=== PATIENT | female | born 1990 | race Caucasian/White ===

== ENCOUNTER 2020-02-13 09:20 | Observation (INO) | payer OTHER ==
[~2020-02-13] VITALS: Ht 167.6 cm; Wt 59.4 kg
[2020-02-13 10:27] LABS: HEMATOCRIT 30.9 % (37.0-47.0); HEMOGLOBIN 9.4 g/dl (12.0-16.0); IMMATURE GRANULOCYTES 0.1 % (0.0-5.0); MEAN CELL VOLUME 88.5 fL CALC (80.0-100.0); MEAN CORPUSCULAR HGB 26.9 pG CALC (26.0-32.0); MEAN CORPUSCULAR HGB CONC 30.4 g/dL CAL (32.0-36.0); NEUT# 5.53 thou/uL (2.00-7.15); RED BLOOD COUNT 3.49 mill/uL (4.20-5.60); RED CELL DISTRI WIDTH 16.9 % (11.5-15.5)
[2020-02-13 10:45] LABS: ALBUMIN 4.1 g/dL (3.2-5.0); ALKALINE PHOSPHATASE 56 u/l (38-126); ANION GAP 10 (6-22 (CALC)); BILIRUBIN, TOTAL 0.2 mg/dL (0.0-1.4); BUN 14 mg/dL (7-17); BUN/CREATININE RATIO 16 (12-20 (CALC)); CARBON DIOXIDE 30 mmol/l (22-30); CHLORIDE 104 mmol/l (95-108); CREATININE 0.8 mg/dL (0.5-1.0); GFR > 60 ML/MIN (>=60 (CALC)); GFR FOR AFR.AMER. > 60 ML/MIN (>=60 (CALC)); POTASSIUM 3.8 mmol/l (3.5-5.1); SGOT/AST 23 u/l (14-36); SODIUM 141 mmol/l (137-146); TOTAL PROTEIN 7.4 g/dL (6.3-8.2)
[2020-02-13 11:37] VITALS: BP 115/71
[2020-02-13 11:40] VITALS: BP 115/71
[2020-02-13 14:50] VITALS: BP 101/63
[2020-02-13 19:00] VITALS: BP 98/62
[2020-02-14 04:00] VITALS: BP 92/62
[2020-02-14 07:17] VITALS: BP 159/57
[2020-02-14 07:39] VITALS: BP 102/72
[2020-02-14 15:00] VITALS: BP 111/72
[2020-02-14 19:00] VITALS: BP 113/68
[2020-02-15 03:48] VITALS: BP 109/71
[2020-02-15 04:44] LABS: HEMATOCRIT 27.7 % (37.0-47.0); HEMOGLOBIN 8.4 g/dl (12.0-16.0); IMMATURE GRANULOCYTES 0.2 % (0.0-5.0); MEAN CELL VOLUME 88.8 fL CALC (80.0-100.0); MEAN CORPUSCULAR HGB 26.9 pG CALC (26.0-32.0); MEAN CORPUSCULAR HGB CONC 30.3 g/dL CAL (32.0-36.0); NEUT# 3.47 thou/uL (2.00-7.15); RED BLOOD COUNT 3.12 mill/uL (4.20-5.60); RED CELL DISTRI WIDTH 16.7 % (11.5-15.5)
[2020-02-15 05:04] LABS: ANION GAP 9 (6-22 (CALC)); BUN 8 mg/dL (7-17); BUN/CREATININE RATIO 11 (12-20 (CALC)); CARBON DIOXIDE 25 mmol/l (22-30); CHLORIDE 109 mmol/l (95-108); CREATININE 0.8 mg/dL (0.5-1.0); GFR > 60 ML/MIN (>=60 (CALC)); GFR FOR AFR.AMER. > 60 ML/MIN (>=60 (CALC)); SODIUM 139 mmol/l (137-146)
[2020-02-15 08:32] VITALS: BP 117/76
[2020-02-15] MEDS ORDERED: BACTRIM DS1 TAB PO (10:52)
[2020-02-15] MEDS ORDERED: PERCOCET 5/325M1 TAB PO (10:54)
== END 2020-02-15 14:40 | disposition home or self-care (01) ==
LOC: ED 09:20 → ED-I 10:01 → ED 10:01 → MS2 10:08 → ED-I 10:09 → MS2 11:44
PROVIDERS: ADMIT Surgery; ATTEND Surgery
DX: N61.1 Abscess of the breast and nipple (principal); Z20.828 Contact with and (suspected) exposure to other viral communicable diseases
CPT/HCPCS: G0378; J2060

== ENCOUNTER 2020-04-11 07:30 | Day surgery (SDC) | payer OTHER ==
[~2020-04-11 07:30] MED LIST: BACTRIM DS1 TAB PO; PERCOCET 5/325M1 TAB PO; TRAZODONE50 MG PO; VISTARIL25 MG PO; VYVANSE20 MG PO
[2020-04-11] MEDS ORDERED: PERCOCET 5/325M1 TAB PO (09:53)
[2020-04-11 10:56] VITALS: BP 116/77
== END 2020-04-11 11:24 | disposition home or self-care (01) ==
LOC: ORM 07:30 → PO 09:15 → ORM 09:15
PROVIDERS: ATTEND Surgery
DX: N61.1 Abscess of the breast and nipple (principal); Z20.828 Contact with and (suspected) exposure to other viral communicable diseases
CPT/HCPCS: J0131; J1100

== ENCOUNTER 2020-08-03 15:22 | Emergency (ER) | payer OTHER | END 2020-08-03 16:34 | disposition left against medical advice (07) | DRG 951 | LOC: ED 15:22 → LWOBS 16:34 | DX: Z53.21 Procedure and treatment not carried out due to patient leaving prior to being seen by health care provider (principal) ==

== ENCOUNTER 2020-11-23 08:34 | Emergency (ER) | payer OTHER ==
[2020-11-23 10:30] VITALS: BP 145/81
[2020-11-23] MEDS ORDERED: ZPAK PO (10:35)
== END 2020-11-23 10:30 | disposition home or self-care (01) ==
LOC: ED 08:34
DX: J06.9 Acute upper respiratory infection, unspecified (principal); Z20.822 Contact with and (suspected) exposure to COVID-19

== ENCOUNTER 2022-04-15 08:31 | Emergency (ER) | payer OTHER ==
[~2022-04-15] VITALS: Ht 167.6 cm; Wt 65.7 kg
[2022-04-15] VITALS (10 sets, daily range): BP systolic 104–139; BP diastolic 72–94
[~2022-04-15 08:31] MED LIST changes: +ZPAK PO
[2022-04-15 09:27] LABS: BASO% 0.9 % (0-3); EOS% 1.8 % (0-8); LYMPH% 30.9 % (15-41); MEAN CELL VOLUME 93.7 fL CALC (80.0-100.0); MEAN CORPUSCULAR HGB 29.9 pG CALC (26.0-32.0); MEAN CORPUSCULAR HGB CONC 31.9 g/dL CAL (32.0-36.0); MONO% 10.6 % (2-13); NEUT# 2.48 thou/uL (2.00-7.15); NEUT% 55.8 % (42-76); RED BLOOD COUNT 3.65 mill/uL (4.20-5.60); RED CELL DISTRI WIDTH 15.7 % (11.5-15.5)
[2022-04-15 09:29] LABS: HEMOGLOBIN 10.9 g/dl (12.0-16.0)
[2022-04-15 09:30] LABS: HEMATOCRIT 34.2 % (37.0-47.0)
[2022-04-15 09:52] LABS: ALBUMIN 4.6 g/dL (3.2-5.0); ALKALINE PHOSPHATASE 71 u/l (38-126); ANION GAP 9 (6-22 (CALC)); BUN 9 mg/dL (7-17); BUN/CREATININE RATIO 11 (12-20 (CALC)); CARBON DIOXIDE 27 mmol/l (22-30); CHLORIDE 109 mmol/l (95-108); CREATININE 0.8 mg/dL (0.5-1.0); GFR FOR AFR.AMER. > 60 ML/MIN (>=60 (CALC)); GFR OTHER RACES > 60 ML/MIN (>=60 (CALC)); SGOT/AST 35 u/l (14-36); SODIUM 141 mmol/l (137-146); TOTAL PROTEIN 7.9 g/dL (6.3-8.2)
[2022-04-15 09:53] LABS: BILIRUBIN, TOTAL 0.4 mg/dL (0.0-1.4)
[2022-04-15 11:16] LABS: URINE BILIRUBIN - DIPSTICK NEGATIVE (NEGATIVE); URINE BLOOD DIPSTICK NEGATIVE (NEGATIVE); URINE COLOR YELLOW; URINE GLUCOSE - DIPSTICK NEGATIVE (NEGATIVE); URINE KETONE NEGATIVE (NEGATIVE); URINE LEUK ESTERASE NEGATIVE (NEGATIVE); URINE NITRITE - DIPSTICK NEGATIVE (Negative); URINE PROTEIN - DIPSTICK NEGATIVE (NEG-TRACE); URINE UROBILINOGEN - DIPSTICK 0.2 E.U./dL (0.2)
[2022-04-15] MEDS ORDERED: PREDNISONE50 MG PO (12:33)
[2022-04-15] MEDS ORDERED: PROVENTIL HFA IN (12:33)
[2022-04-15] MEDS ORDERED: DOXY-CAPS100 MG PO (12:33)
== END 2022-04-15 12:50 | disposition home or self-care (01) ==
LOC: ED 08:31
PROVIDERS: Family Medicine
DX: J40 Bronchitis, not specified as acute or chronic (principal); M94.0 Chondrocostal junction syndrome [Tietze]; N28.9 Disorder of kidney and ureter, unspecified; Z20.822 Contact with and (suspected) exposure to COVID-19